=== PATIENT | male | born 1950 | race Caucasian/White ===

== ENCOUNTER 2018-09-04 23:53 | Inpatient (IN) | payer OTHER ==
[~2018-09-04] VITALS: Ht 182.9 cm; Wt 133.3 kg
[2018-09-05] VITALS (78 sets, daily range): BP systolic 78–147; BP diastolic 21–85
[2018-09-05 02:23] LABS: BE(vivo) -1.4 mmol/L (-2 to +3); HCO3 26.3 mmol/L (22.0-26.0); PCO2 55.8 mmHg (35.0-45.0); PO2 62.8 mmHg (80.0-100.0); sO2 89.2 % (92.0-98.0)
[2018-09-05 02:24] LABS: pH 7.292 (7.360-7.450)
[2018-09-05 02:51] LABS: HEMATOCRIT 48.9 % (42.0-52.0); HEMOGLOBIN 15.7 gm/dL (14.0-18.0); MCHC 32.1 g/dL (28.0-37.0); MCV 93.3 fL (80.0-100.0); RBC 5.24 mil/uL (4.50-6.00); RDW 14.6 % (10.5-14.5); WBC 13.4 thou/uL (4.0-11.0)
[2018-09-05 03:07] LABS: ANION GAP 7 mmol/L (7-16); BUN 20 mg/dL (7-18); CALCIUM 8.3 mg/dL (8.5-10.1); CHLORIDE 105 mmol/L (98-107); CO2 32 mmol/L (21-32); CREATININE 0.9 mg/dL (0.7-1.3); GLUCOSE 119 mg/dL (74-106); SODIUM 144 mmol/L (136-145)
[2018-09-05 03:12] LABS: ALBUMIN 3.4 g/dL (3.4-5.0); CHOLESTEROL 117 mg/dL (<200); HDL CHOLESTEROL 49 mg/dL (>40); LDL CHOLESTEROL 55 mg/dL (<100); SGOT 16 U/L (15-37); SGPT 21 U/L (30-65); TC:HDL 2.4 Ratio (Not establshd); TOTAL BILIRUBIN 0.6 mg/dL (<0.1-1.0); TOTAL PROTEIN 6.4 g/dL (6.4-8.2); TRIGLYCERIDE 67 mg/dL (<150); TROPONIN-I 0.08 ng/mL (<0.06); VLDL 13 mg/dL (<40)
[2018-09-05 03:17] LABS: POTASSIUM 5.3 mmol/L (3.5-5.1); SERUM ASSESSMENT Clear
[2018-09-05 03:39] LABS: APTT 28.5 Seconds (24.5-32.8); INR 1.1; PROTIME 11.9 Seconds (9.3-11.4)
--- NOTE | 2018-09-05 08:24 | EKG ---
[address] [address] ELECTROCARDIOGRAM REPORT Name: MALCOM PIERRE Room #: 237-P ADM IN M.R.#: [id number] ������������������ Admission: 09/05/18 ������������������ Attend Phys: Ricardo Barnes MD Discharge: ������������������ Date of : 48 Report #: [id number] ����������������������������������������������������������������� [id number] THIS REPORT FOR: //name// [facility] Test Date: 2018-09-05 Test Time: 07:39:12 Pat Name: MALCOM PIERRE Department: Room: 237 P Gender: M Sfdc Consultant: SUSAN : 1950 Requested By: Yumiko Schultz Order Number: [id number] MD: Tian Denise Measurements Intervals [place] Rate: 99 P: 79 [place]: 155 QRS: 12 QRSD: 97 T: 64 QT: 326 QTc: 419 Interpretive Statements Sinus rhythm Baseline wander in lead(s) V5 No previous ECG available for comparison Electronically Signed On 09-05-2018 8:24:45 CDT by Tian Denise [email or web address] ��������������������������������������������� <ELECTRONICALLY SIGNED> ���������������������������������������� By: Tian Denise MD ��������������������������������������������� 09/05/18 0824 0739 07 Tian Denise MD /PAOLA
[2018-09-05 10:15] LABS: HEMATOCRIT 44.4 % (42.0-52.0); HEMOGLOBIN 14.2 gm/dL (14.0-18.0); MCH 29.4 pg (26.0-34.0); MCHC 32.1 g/dL (28.0-37.0); MCV 91.7 fL (80.0-100.0); PLATELET COUNT 210 thou/uL (150-400); RBC 4.84 mil/uL (4.50-6.00); RDW 14.5 % (10.5-14.5); WBC 15.2 thou/uL (4.0-11.0)
[2018-09-05 10:23] LABS: BE(vivo) 2.7 mmol/L (-2 to +3); HCO3 27.4 mmol/L (22.0-26.0); PCO2 42.5 mmHg (35.0-45.0); PO2 111.9 mmHg (80.0-100.0); pH 7.428 (7.360-7.450); sO2 98.2 % (92.0-98.0)
[2018-09-05 10:23] LABS: CALCIUM 8.4 mg/dL (8.5-10.1); CREATININE 1.1 mg/dL (0.7-1.3)
[2018-09-05 10:25] LABS: POTASSIUM 4.3 mmol/L (3.5-5.1)
--- NOTE | 2018-09-05 10:41 | 2DMMODE ---
[facility] [place] [address] 2 D/M-MODE ECHOCARDIOGRAM Name: MALCOM PIERRE Room #: 237-P [facility] IN [facility]#: [id number] ������������� Admission: 09/05/18 ������������� Attend Phys: Ricardo Barnes MD Discharge: ��� ������������� ��� Date of : 48 Date of Service: 09/05/18 1041 �� Report #: [id number] �������� ��������������������������������������������[id number] THIS REPORT FOR: //name// APPROVED REPORT Study performed: 09/05/2018 09:14:39 EXAM: Comprehensive 2D, Doppler, and color-flow Echocardiogram Patient Location: ICU Room #: [facility] Status: routine BSA: 2.64 HR: 93 bpm BP: 102/35 mmHg Rhythm: Irregular. Rate ranged between 70's-140's Other Information Study Quality: Poor images. Limited windows and measurements Technically limited study due to morbid obesity. Patient in ICU on vent. Indications Respiratory failure, elevated tropinin. Echo Enhancing Agent Indication: Endocardial border delineation Agent(s) / Amount(s) Used: Optison 6 cc Volumes Left Atrial Volume (Systole) Single Plane 4CH: 66.99 mL Single Plane 2CH: 68.46 mL LA ESV Index: 29.00 mL/m2 Aortic Valve AoV Peak Simon.: 1.28 m/s AO Peak Gr.: 6.59 mmHg LVOT Max P.90 mmHg LVOT Max V: 1.11 m/s Mitral Valve E/A Ratio: 0.8 MV Decel. Time: 288.88 ms MV E Max Simon.: 0.50 m/s MV A Simon.: 0.60 m/s MV PHT: 83.[address] [facility] [place] [address] [place] [address] 2 D/M-MODE ECHOCARDIOGRAM Name: MALCOM PIERRE Room #: 237-P ADM IN [facility]#: [id number] ������������� Admission: 09/05/18 ������������� Attend Phys: Ricardo Barnes MD Discharge: ��� ������������� ��� Date of : 48 Date of Service: 09/05/18 1041 �� Report #: [id number] �������� ��������������������������������������������[id number] IVRT: 78.43 ms Left Ventricle Left ventricle is grossly normal size. Poor quality echo. Systolic function is greater than 50%. Right Ventricle Right ventricle is not well visualized. Atria The left atrium size is normal. The right atrium size is normal. Aortic Valve The aortic valve is poorly visualized. No aortic regurgitation is present. There is no aortic valvular stenosis appreciated. Mitral Valve The mitral valve is grossly normal in structure. There is no mitral valve regurgitation noted. Tricuspid Valve Tricuspid valve is poorly visualized. Unable to assess PA pressure. Pulmonic Valve Pulmonic valve is not well visualized. Great Vessels Aortic root is not well visualized. No subcostal windows. Unable to visualize IVC. Pericardium No pericardial effusion is appreciated. <Conclusion> Left ventricle is grossly normal size. Poor quality echo. Systolic function is greater than 50%. Right ventricle is not well visualized. The aortic valve is poorly visualized. The mitral valve is grossly normal in structure. Tricuspid valve is poorly visualized. Pulmonic valve is not well visualized. [facility] [address] [place] [address] 2 D/M-MODE ECHOCARDIOGRAM Name: GABBYMALCOM L Room #: 237-P [facility] IN [facility]#: [id number] ������������� Admission: 09/05/18 ������������� Attend Phys: Ricardo Barnes MD Discharge: ��� ������������� ��� Date of : 48 Date of Service: 09/05/18 104 �� Report #: [id number] �������� ��������������������������������������������[id number] Aortic root is not well visualized. No pericardial effusion is appreciated. ��������������������������������������������� <ELECTRONICALLY SIGNED> ���������������������������������������� By: Noe Albright MD ��������������������������������������������� 09/05/18 104 40 40 Noe Albright MD /INF
[2018-09-05 11:15] LABS: ABSOLUTE NEUTROPHILS 14.1 thou/uL (1.4-8.2)
[2018-09-05 11:16] LABS: ANISOCYTOSIS SLIGHT
[2018-09-05 11:57] LABS: URINE BLOOD 3+ (Negative); URINE COLOR YELLOW; URINE GLUCOSE-RANDOM* NEGATIVE (Negative); URINE KETONES TRACE (Negative); URINE LEUKOCYTES-REFLEX TRACE (Negative); URINE NITRITE-REFLEX NEGATIVE (Negative); URINE PROTEIN (DIPSTICK) TRACE (Negative)
[2018-09-05 11:58] LABS: URINE CLARITY HAZY
[2018-09-05 12:00] LABS: ICTOTEST (BILI CONFIRMATORY) Negative (Negative); URINE BILIRUBIN NEGATIVE (Negative)
[2018-09-05 12:35] LABS: SQUAMOUS 0-3 Few /LPF (0-3)
[2018-09-05 12:36] LABS: CASTS None Seen /LPF (None Seen)
[2018-09-05 12:38] LABS: AMORPHOUS URATES Few /LPF (None Seen); BACTERIA-REFLEX 1-9 Few /HPF (None Seen); URINE WBC-REFLEX 0-5 Rare /HPF (0-5)
[2018-09-05 19:43] LABS: POTASSIUM 3.9 mmol/L (3.5-5.1)
--- NOTE | 2018-09-05 21:23 | HC ---
[facility] [place] [address] CONSULTATION Name: MALCOM PIERRE Room #: 237-P [facility] IN M.R.#: [id number] Admission: 09/05/18 ������������������ Attend Phys: Ricardo Barnes MD Discharge: ������������������ Date of : 48 Report #: [id number] THIS REPORT FOR: //name// CC: FAM unknown Ricardo Barnes DATE OF SERVICE: 09/05/2018 PULMONARY CONSULTATION REFERRAL PHYSICIAN: Ricardo Barnes MD. REASON FOR REFERRAL: Acute respiratory failure. HISTORY OF PRESENT ILLNESS: The patient is a 67-year-old white male who was transferred from [facility] with acute respiratory failure. A pulmonary consultation was requested. History is somewhat limited. The patient is intubated. Family members are not available. Most of the history is obtained from the records. According to records, the patient was found by his niece at home very confused, dyspneic. The patient has not seen a physician in years. When he is brought to the Emergency Room, he was found to be severely acidotic. When he was seen in the Emergency Room Department, his initial arterial blood gas revealed pH of 7.09, pCO2 of 129, pO2 of 108. The patient was placed on BiPAP. He did not improve. Chest x-ray suggests possible right lower lobe infiltrates, questionable soft tissue mass. He was subsequently intubated in the ED and transferred to [facility]. Other pertinent laboratory include hemoglobin of 15.8; creatinine of 0.9. Currently, he is intubated, arousable, requiring sedation. PAST MEDICAL HISTORY: Incomplete. PAST SURGICAL HISTORY: As above. Incomplete. ALLERGIES: PENICILLIN, REACTIONS UNSPECIFIED. HOME MEDICATIONS: None noted. FAMILY HISTORY: Unknown. SOCIAL HISTORY: Unknown. [facility] [address] [place] [address] CONSULTATION Name: MALCOM PIERRE Room #: 237-[facility] IN .R.#: [id number] Admission: 09/05/18 ������������������ Attend Phys: Ricardo Barnes MD Discharge: ������������������ Date of : 48 Report #: [id number] REVIEW OF SYSTEMS: Deferred as the patient is intubated. PHYSICAL EXAMINATION: GENERAL: He is arousable with deep sternal rub. VITAL SIGNS: Temperature is 99.6 degrees Fahrenheit, pulse is 100, respiratory rate is 20, blood pressure is 100/70 mmHg. Blood pressure has been trending downward since admission to a systolic around 78 mmHg and saturation 96%. Of note, a temperature maximum was 105 degrees. HEENT: Normocephalic, atraumatic. He is orally intubated. NECK: Supple, without lymphadenopathy or thyromegaly. CHEST: Breath sounds are distant, coarse breath sounds anteriorly. No obvious wheezes. CARDIOVASCULAR: Distant heart sounds without obvious murmurs or gallop. Pulses 2+/4+ bilaterally. ABDOMEN: Mildly distended. NG was placed. It is now softer. No masses felt. GENITOURINARY: Deferred. RECTAL: Deferred. EXTREMITIES: Trace edema. No cyanosis or clubbing. NEUROLOGIC: Deferred as the patient is sedated. He was restless and mildly agitated off sedation. LABORATORY DATA: Portable chest x-ray now shows patchy right upper lobe and lower lobe infiltrates. There is a moderate size left lower lobe infiltrates with probable small pleural effusion. Left hemidiaphragm is elevated with increased gas in the stomach. Central line is in place. ET tube is approximately 2.5 to 3 cm above the yisel. Mediastinum is enlarged. Leg Doppler ultrasound shows no evidence of DVT. Echocardiogram showed poor quality echocardiogram. The right ventricle was not adequately visualized, systolic functions felt to be normal at 50%, otherwise no other significant findings. TSH is 2.2. BNP is approximately 1000. EKG shows sinus rhythm. Lactic acid is 1.9. UA notable for 1-9 bacteria. Electrolytes: Sodium 145, potassium 4.3, chloride 108, CO2 of 33, BUN is 21, creatinine is 1.1. Liver enzymes are grossly unremarkable. WBC 15,200 without significant bandemia. Platelets are normal. Albumin 3.2. Arterial blood gas revealed pH 7.42, pCO2 of 42, pO2 of 111 on FiO2 100%, PEEP at 9. IMPRESSION: 1. Acute hypercapnic hypoxic respiratory failure in this 67-year-old morbidly obese white male. Suspect underlying obesity hypoventilation syndrome with probable pneumonia. It is unclear if he has underlying chronic lung disease. With the patient's bicarbonate being elevated, this suggests hypercapnia is likely chronic confirming the presence of obesity hypoventilation syndrome. 2. Infiltrates. He now has bilateral patchy infiltrates. I do not have the copy of the initial chest x-ray. Intubation was said to be difficult. Aspiration should be considered. Community-acquired pneumonia is likely. 3. Early onset of hypotension. Severe sepsis, septic shock is suspected. [facility] [address] [place] [address] CONSULTATION Name: MALCOM PIERRE Room #: 237-P ADM IN M.R.#: [id number] Admission: 09/05/18 ������������������ Attend Phys: Ricardo Barnes MD Discharge: ������������������ Date of : 48 Report #: [id number] Initiate sepsis protocol. 4. Profound hypoxia, noted A-a gradient is markedly increased. Leg Doppler ultrasound was negative for deep venous thrombosis. His hypoxia is likely related to pneumonia, possible chronic lung disease. However, cannot rule out the possibility of pulmonary embolus. For now, we would recommend heparin drip until the patient is stabilized, then we can confidently rule out pulmonary embolus. 5. Wide mediastinum, questionable lung mass. Would recommend CT chest once clinically stable. 6. Morbid obesity. As mentioned above, suspect obesity hypoventilation syndrome/obstructive sleep apnea. 7. Abdominal distention. Recent chest x-ray shows increased gaseous content in the stomach, suspect ileus. RECOMMENDATION: Continue mechanical ventilation. We will try to optimize PEEP to wean FiO2, hopefully down to 60% if possible to avoid oxygen toxicity. We will try to optimize PEEP as blood pressure tolerates. Recommend initiating sepsis protocol given pneumonia, hypotension, multisystem organ failure. For now, we will continue heparin drip; once stable, hopefully we can proceed with CT chest. If hypoxia and A-a gradient remains markedly abnormal, would in fact do CT chest angiogram. Note that echocardiogram was a difficult study. Right ventricle was not able to be adequately assessed. History suggested intubation was traumatic and weaning may be difficult. He is already on steroids for sepsis protocol. He may need to have upper airway carefully evaluated prior to proceeding with extubation when he is improved. DVT and GI prophylaxis is recommended. Critical care 1 hour. Thank you very much for this consultation. ��������������������������������������������� <ELECTRONICALLY SIGNED> ���������������������������������������� By: Josh Addison MD ��������������������������������������������� 09/05/18 2123 1845 24 Josh Addison MD /kassie
[2018-09-06] VITALS (61 sets, daily range): BP systolic 85–137; BP diastolic 51–93
[2018-09-06 00:10] LABS: GLYCOHEMOGLOBIN (HGB A1C) 5.8 % (4.8-5.6)
[2018-09-06 05:17] LABS: ABSOLUTE NEUTROPHILS 10.7 thou/uL (1.4-8.2); BASOPHILS 0.3 % (0.0-2.0); EOSINOPHILS 0.4 % (0.0-3.0); HEMATOCRIT 40.3 % (42.0-52.0); HEMOGLOBIN 13.4 gm/dL (14.0-18.0); LYMPHOCYTES 6.9 % (24.0-44.0); MCH 30.2 pg (26.0-34.0); MCHC 33.2 g/dL (28.0-37.0); MONOCYTES 6.2 % (1.0-8.0); PLATELET COUNT 175 thou/uL (150-400); POLYS 86.2 % (36.0-66.0); RBC 4.43 mil/uL (4.50-6.00); RDW 14.5 % (10.5-14.5); WBC 12.4 thou/uL (4.0-11.0)
[2018-09-06 05:20] LABS: BE(vivo) 3.4 mmol/L (-2 to +3); HCO3 27.6 mmol/L (22.0-26.0); PCO2 40.5 mmHg (35.0-45.0); PO2 133.9 mmHg (80.0-100.0); pH 7.452 (7.360-7.450); sO2 98.8 % (92.0-98.0)
[2018-09-06 05:27] LABS: CALCIUM 7.9 mg/dL (8.5-10.1); CREATININE 0.9 mg/dL (0.7-1.3); POTASSIUM 3.5 mmol/L (3.5-5.1)
--- NOTE | 2018-09-06 09:29 | HC ---
[facility] [place] [address] CONSULTATION Name: MALCOM PIERRE Room #: 237-P [facility] IN .R.#: [id number] Admission: 09/05/18 ������������������ Attend Phys: Ricardo Barnes MD Discharge: ������������������ Date of : 48 Report #: [id number] THIS REPORT FOR: //name// CC: FAM unknown Ricardo Barnes DATE OF SERVICE: 09/05/2018 INFECTIOUS DISEASE CONSULTATION REASON FOR CONSULTATION: I was asked to evaluate concerning respiratory failure, pneumonia and septic shock. HISTORY OF PRESENT ILLNESS: The patient is a 67-year-old transferred from [facility] where he presented with acute respiratory failure and shock. He has had progressive shortness of breath over the last 3 months. He was found by his niece at home, confused, dyspneic. Transported to the Emergency Room in respiratory failure. Placed on BiPAP, required intubation and mechanical ventilation. No further details are available regarding his history. Following transport, DICTATION ENDS HERE. ��������������������������������������������� <ELECTRONICALLY SIGNED> ���������������������������������������� By: Jacob Kerr MD ��������������������������������������������� 09/06/18 0929 1104 2346 Jacob Kerr MD /nt
[2018-09-06 14:06] LABS: HIV ANTIBODY Non Reactive (Non Reactive)
[2018-09-07] VITALS (88 sets, daily range): BP systolic 101–150; BP diastolic 56–104
[2018-09-07 04:28] LABS: CALCIUM 8.5 mg/dL (8.5-10.1); CREATININE 0.9 mg/dL (0.7-1.3); POTASSIUM 3.6 mmol/L (3.5-5.1)
[2018-09-07 05:17] LABS: BE(vivo) 3.5 mmol/L (-2 to +3); HCO3 28.4 mmol/L (22.0-26.0); PCO2 44.2 mmHg (35.0-45.0); PO2 97.5 mmHg (80.0-100.0); pH 7.426 (7.360-7.450); sO2 97.5 % (92.0-98.0)
[2018-09-07 06:25] LABS: HEMATOCRIT 40.8 % (42.0-52.0); HEMOGLOBIN 13.2 gm/dL (14.0-18.0); MCH 29.8 pg (26.0-34.0); MCHC 32.4 g/dL (28.0-37.0); MCV 91.8 fL (80.0-100.0); RBC 4.44 mil/uL (4.50-6.00); WBC 11.1 thou/uL (4.0-11.0)
[2018-09-07 12:12] LABS: BE(vivo) 0.9 mmol/L (-2 to +3); HCO3 26.7 mmol/L (22.0-26.0); PCO2 47.3 mmHg (35.0-45.0); PO2 70.5 mmHg (80.0-100.0); sO2 93.6 % (92.0-98.0)
[2018-09-07 13:07] LABS: CALCIUM 8.5 mg/dL (8.5-10.1); CREATININE 1.1 mg/dL (0.7-1.3); POTASSIUM 3.8 mmol/L (3.5-5.1)
[2018-09-08] VITALS (28 sets, daily range): BP systolic 98–124; BP diastolic 58–83
[2018-09-08 05:16] LABS: BE(vivo) -0.1 mmol/L (-2 to +3); HCO3 26.5 mmol/L (22.0-26.0); PO2 93.2 mmHg (80.0-100.0); pH 7.334 (7.360-7.450); sO2 96.6 % (92.0-98.0)
[2018-09-08 05:32] LABS: HEMOGLOBIN 13.2 gm/dL (14.0-18.0); MCH 30.1 pg (26.0-34.0); RBC 4.39 mil/uL (4.50-6.00); WBC 8.4 thou/uL (4.0-11.0)
[2018-09-08 05:44] LABS: CALCIUM 8.6 mg/dL (8.5-10.1); CREATININE 0.9 mg/dL (0.7-1.3); POTASSIUM 3.6 mmol/L (3.5-5.1)
[2018-09-08 18:08] LABS: HISTOPLASMA MYCELIAL-CF Negative (Neg:<1:2); HISTOPLASMA MYCELIAL-ID Negative (Negative)
[2018-09-08 21:07] LABS: ADENOVIRUS Negative (Negative); INFLUENZA A Negative (Negative); INFLUENZA B Negative (Negative); METAPNEUMOVIRUS Negative (Negative); PARAINFLUENZA 1 Negative (Negative); PARAINFLUENZA 2 Negative (Negative); PARAINFLUENZA 3 Negative (Negative); RHINOVIRUS Negative (Negative); RSV A Negative (Negative); RSV B Negative (Negative)
[2018-09-09] VITALS (24 sets, daily range): BP systolic 100–127; BP diastolic 62–82
[2018-09-09 05:11] LABS: HEMATOCRIT 35.5 % (42.0-52.0); HEMOGLOBIN 12.2 gm/dL (14.0-18.0); MCH 31.6 pg (26.0-34.0); MCHC 34.5 g/dL (28.0-37.0); MCV 91.6 fL (80.0-100.0); RBC 3.88 mil/uL (4.50-6.00); RDW 14.8 % (10.5-14.5); WBC 7.2 thou/uL (4.0-11.0)
[2018-09-09 07:12] LABS: CALCIUM 8.7 mg/dL (8.5-10.1); POTASSIUM 3.5 mmol/L (3.5-5.1)
[2018-09-09 12:10] LABS: HCO3 24.9 mmol/L (22.0-26.0); PCO2 51.5 mmHg (35.0-45.0); PO2 64.6 mmHg (80.0-100.0); pH 7.303 (7.360-7.450); sO2 90.4 % (92.0-98.0)
[2018-09-10] VITALS (24 sets, daily range): BP systolic 92–125; BP diastolic 52–78
[2018-09-10 05:01] LABS: BE(vivo) 0.7 mmol/L (-2 to +3); HCO3 27.5 mmol/L (22.0-26.0); PCO2 53.1 mmHg (35.0-45.0); PO2 97.3 mmHg (80.0-100.0); pH 7.332 (7.360-7.450); sO2 96.9 % (92.0-98.0)
[2018-09-10 12:55] LABS: BE(vivo) 3.5 mmol/L (-2 to +3); HCO3 31.2 mmol/L (22.0-26.0); PCO2 61.3 mmHg (35.0-45.0); PO2 57.7 mmHg (80.0-100.0); sO2 87.2 % (92.0-98.0)
[2018-09-10 12:57] LABS: pH 7.325 (7.360-7.450)
[2018-09-11] VITALS (25 sets, daily range): BP systolic 93–114; BP diastolic 57–73
[2018-09-11 05:32] LABS: HEMATOCRIT 36.2 % (42.0-52.0); HEMOGLOBIN 12.4 gm/dL (14.0-18.0); MCH 31.2 pg (26.0-34.0); MCHC 34.2 g/dL (28.0-37.0); MCV 91.2 fL (80.0-100.0); PLATELET COUNT 211 thou/uL (150-400); RBC 3.97 mil/uL (4.50-6.00); RDW 14.3 % (10.5-14.5)
[2018-09-11 05:42] LABS: BE(vivo) 4.2 mmol/L (-2 to +3); HCO3 30.2 mmol/L (22.0-26.0); PCO2 51.2 mmHg (35.0-45.0); PO2 90.3 mmHg (80.0-100.0); pH 7.389 (7.360-7.450); sO2 96.7 % (92.0-98.0)
[2018-09-11 07:01] LABS: ABSOLUTE NEUTROPHILS 4.5 thou/uL (1.4-8.2); MYELOCYTES 1 %
[2018-09-11 07:53] LABS: ALBUMIN 2.2 g/dL (3.4-5.0); CREATININE 0.7 mg/dL (0.7-1.3); POTASSIUM 3.6 mmol/L (3.5-5.1); TOTAL BILIRUBIN 0.3 mg/dL (<0.1-1.0); TOTAL PROTEIN 5.3 g/dL (6.4-8.2)
[2018-09-12] VITALS (24 sets, daily range): BP systolic 104–171; BP diastolic 56–88
[2018-09-12 05:45] LABS: HEMOGLOBIN 12.9 gm/dL (14.0-18.0); MCH 29.8 pg (26.0-34.0); MCV 90.1 fL (80.0-100.0); RBC 4.33 mil/uL (4.50-6.00); RDW 14.2 % (10.5-14.5); WBC 6.5 thou/uL (4.0-11.0)
[2018-09-12 06:06] LABS: ALBUMIN 2.3 g/dL (3.4-5.0); CALCIUM 8.8 mg/dL (8.5-10.1); CREATININE 0.7 mg/dL (0.7-1.3); MAGNESIUM 2.3 mg/dL (1.8-2.4); PHOSPHORUS 3.7 mg/dL (2.5-4.9); POTASSIUM 4.1 mmol/L (3.5-5.1); TOTAL BILIRUBIN 0.5 mg/dL (<0.1-1.0); TOTAL PROTEIN 6.1 g/dL (6.4-8.2)
[2018-09-13] VITALS (24 sets, daily range): BP systolic 100–161; BP diastolic 42–83
[2018-09-13 04:40] LABS: CALCIUM 9.1 mg/dL (8.5-10.1); CREATININE 0.8 mg/dL (0.7-1.3); PHOSPHORUS 3.5 mg/dL (2.5-4.9); POTASSIUM 3.8 mmol/L (3.5-5.1)
[2018-09-14] VITALS (21 sets, daily range): BP systolic 96–137; BP diastolic 54–78
[2018-09-14 06:02] LABS: CALCIUM 8.9 mg/dL (8.5-10.1); CREATININE 0.7 mg/dL (0.7-1.3); MAGNESIUM 2.1 mg/dL (1.8-2.4); POTASSIUM 3.9 mmol/L (3.5-5.1)
[2018-09-14 06:17] LABS: PHOSPHORUS 3.8 mg/dL (2.5-4.9)
[2018-09-14 09:59] LABS: BE(vivo) 6.9 mmol/L (-2 to +3); HCO3 36.2 mmol/L (22.0-26.0); PO2 78.9 mmHg (80.0-100.0); sO2 93.8 % (92.0-98.0)
[2018-09-14 10:00] LABS: pH 7.296 (7.360-7.450)
[2018-09-14 15:13] LABS: HCO3 35.6 mmol/L (22.0-26.0); PCO2 57.1 mmHg (35.0-45.0); PO2 80.5 mmHg (80.0-100.0); pH 7.413 (7.360-7.450); sO2 95.8 % (92.0-98.0)
[2018-09-15] VITALS (24 sets, daily range): BP systolic 93–124; BP diastolic 53–76
[2018-09-15 05:04] LABS: CALCIUM 9.4 mg/dL (8.5-10.1); CREATININE 0.6 mg/dL (0.7-1.3); POTASSIUM 4.4 mmol/L (3.5-5.1)
[2018-09-15 13:50] LABS: BE(vivo) 9.1 mmol/L (-2 to +3); HCO3 37.3 mmol/L (22.0-26.0); PO2 73.1 mmHg (80.0-100.0); sO2 93.6 % (92.0-98.0)
[2018-09-15 13:51] LABS: PCO2 67.6 mmHg (35.0-45.0)
[2018-09-16] VITALS (24 sets, daily range): BP systolic 99–128; BP diastolic 47–71
[2018-09-16 05:18] LABS: HEMATOCRIT 39.1 % (42.0-52.0); HEMOGLOBIN 12.7 gm/dL (14.0-18.0); MCH 29.6 pg (26.0-34.0); MCHC 32.6 g/dL (28.0-37.0); MCV 90.9 fL (80.0-100.0); RBC 4.3 mil/uL (4.50-6.00); WBC 10.9 thou/uL (4.0-11.0)
[2018-09-16 05:31] LABS: CREATININE 0.7 mg/dL (0.7-1.3); POTASSIUM 4.3 mmol/L (3.5-5.1)
[2018-09-17] VITALS (21 sets, daily range): BP systolic 97–130; BP diastolic 52–76
[2018-09-17 05:14] LABS: HEMATOCRIT 39.2 % (42.0-52.0); HEMOGLOBIN 12.7 gm/dL (14.0-18.0); MCH 29.3 pg (26.0-34.0); MCHC 32.3 g/dL (28.0-37.0); MCV 90.6 fL (80.0-100.0); RBC 4.33 mil/uL (4.50-6.00); RDW 14.2 % (10.5-14.5); WBC 8.7 thou/uL (4.0-11.0)
[2018-09-17 05:22] LABS: CALCIUM 8.9 mg/dL (8.5-10.1); CREATININE 0.6 mg/dL (0.7-1.3); POTASSIUM 4.5 mmol/L (3.5-5.1)
[2018-09-18] VITALS (24 sets, daily range): BP systolic 90–126; BP diastolic 52–76
[2018-09-18 06:00] LABS: CALCIUM 8.9 mg/dL (8.5-10.1); CREATININE 0.6 mg/dL (0.7-1.3); POTASSIUM 4.4 mmol/L (3.5-5.1)
[2018-09-18 11:44] LABS: BE(vivo) 5.3 mmol/L (-2 to +3); HCO3 32.7 mmol/L (22.0-26.0); PO2 67.5 mmHg (80.0-100.0); pH 7.354 (7.360-7.450); sO2 92.2 % (92.0-98.0)
[2018-09-19] VITALS (48 sets, daily range): BP systolic 84–138; BP diastolic 40–92
[2018-09-19 06:14] LABS: CALCIUM 8.7 mg/dL (8.5-10.1); CREATININE 0.6 mg/dL (0.7-1.3); POTASSIUM 4.1 mmol/L (3.5-5.1)
[2018-09-20] VITALS (30 sets, daily range): BP systolic 86–135; BP diastolic 46–79
[2018-09-20 05:18] LABS: HEMATOCRIT 38.4 % (42.0-52.0); HEMOGLOBIN 12.7 gm/dL (14.0-18.0); MCH 29.8 pg (26.0-34.0); MCV 90.4 fL (80.0-100.0); RBC 4.25 mil/uL (4.50-6.00); RDW 14.1 % (10.5-14.5); WBC 9.2 thou/uL (4.0-11.0)
[2018-09-20 05:28] LABS: CALCIUM 9.1 mg/dL (8.5-10.1); CREATININE 0.7 mg/dL (0.7-1.3); POTASSIUM 4.1 mmol/L (3.5-5.1)
[2018-09-20 08:18] LABS: INR 1.1; PROTIME 11.2 Seconds (9.3-11.4)
--- NOTE | 2018-09-20 11:00 | P ---
[facility] [place] [address] PROCEDURE REPORT Name: MALCOM PIERRE Room #: 243-P [facility] IN .R.#: [id number] Admission: 09/05/18 ������������������ Attend Phys: Ricardo Barnes MD Discharge: ������������������ Date of : 48 Report #: [id number] THIS REPORT FOR: //name// CC: FAM unknown Ricardo Barnes MD PROCEDURE PERFORMED: EGD with attempted PEG tube placement. PATIENT OF: Ricardo Barnes MD INDICATION FOR PROCEDURE: This patient has H. influenzae pneumonia. He is on a ventilator with a prolonged weaning anticipated and therefore needs a tracheostomy and a PEG tube. We were asked to place a PEG tube for him. Informed consent for this procedure was obtained prior to the administration of any medication. The risks of the procedure, which include bleeding, perforation, infection, complications of sedation and the possibility I could miss something have been explained to his relatives and she has indicated her consent for us to place the PEG tube. The patient is on a propofol drip that is being titrated by the ICU nurses for the patient's comfort for this procedure. The upper videoscope was introduced through the upper esophageal sphincter and advanced under direct visualization to the third portion of the duodenum. Findings are noted on withdrawal of the scope. The duodenal mucosa and the second portion of the duodenum appears normal. Duodenal bulb contains some erythema. Pylorus, normal mucosa. Antrum, patchy erythema seen in the antrum, it is mild. Body, normal mucosa. Cardia and fundus, normal mucosa. Retroflex view did not reveal any abnormalities. The scope was withdrawn to the esophagus. The Z-line is appropriately located at the top of the gastric folds and appears normal. The esophageal mucosa appears normal throughout its entirety. The scope was advanced down into the stomach again and appropriate place in the antrum on the anterior wall was localized endoscopically with transillumination seen. The anterior abdominal wall in the epigastrium was sterilely prepped and draped and 5 mL of 1% lidocaine was used as a local anesthetic. A 1 cm incision was made with a scalpel. Good hemostasis was obtained immediately. Then a trocar was introduced through the anterior abdominal wall and down into the abdomen, but I was never able to gain access to the stomach. I could not even really see the gastric wall at all with the needle. The patient is a large man, weighs about 148 kg and has a lot of adipose tissue I expect up in the epigastrium, which may be the limiting factor for my needle being able to reach his stomach. Therefore, the trocar was removed. Sterile dressing was applied with triple antibiotic ointment and the scope was withdrawn. The patient was recovered in the room in ICU. He tolerated the procedure well. IMPRESSION: [facility] [address] [place] [address] PROCEDURE REPORT Name: MALCOM PIERRE Room #: 243-P [facility] IN .R.#: [id number] Admission: 09/05/18 ������������������ Attend Phys: Ricardo Barnes MD Discharge: ������������������ Date of : 48 Report #: [id number] 1. Mild gastric erythema. 2. Mild duodenitis of the bulb. 3. Unsuccessful placement of PEG tube probably related to the patient's adiposity in the epigastric area. RECOMMENDATIONS: To consult Interventional Radiology and I left a message with Dr. Nguyen on his phone about this PEG tube placement on this patient. Thank you very much once again for allowing me to participate in his care. ��������������������������������������������� <ELECTRONICALLY SIGNED> ���������������������������������������� By: Maxine Minaya DO ��������������������������������������������� 09/20/18 1100 1339 0127 Maxine Minaya DO /nt
[2018-09-21] VITALS (64 sets, daily range): BP systolic 83–124; BP diastolic 46–78
[2018-09-21 05:15] LABS: HEMATOCRIT 37.3 % (42.0-52.0); HEMOGLOBIN 12.2 gm/dL (14.0-18.0); MCH 29.4 pg (26.0-34.0); MCHC 32.6 g/dL (28.0-37.0); MCV 90.2 fL (80.0-100.0); RBC 4.14 mil/uL (4.50-6.00)
[2018-09-21 05:21] LABS: CALCIUM 8.7 mg/dL (8.5-10.1); CREATININE 0.6 mg/dL (0.7-1.3); POTASSIUM 4.2 mmol/L (3.5-5.1)
--- NOTE | 2018-09-21 16:46 | EKG ---
[address] [place] [address] ELECTROCARDIOGRAM REPORT Name: MALCOM PIERRE Room #: 243-P ADM IN .R.#: [id number] ������������������ Admission: 09/05/18 ������������������ Attend Phys: Ricardo Barnes MD Discharge: ������������������ Date of : 48 Report #: [id number] ����������������������������������������������������������������� [id number] THIS REPORT FOR: //name// [facility] Test Date: 2018-09-21 Test Time: 12:59:15 Pat Name: MALCOM PIERRE Department: Room: 243 P Gender: M Customer Support Engineer: Mindy AVILES : 1950 Requested By: Ricardo Barnes Order Number: [id number] MD: Jass Hinojosa Measurements Intervals [place] Rate: 133 P: 35 [place]: 153 QRS: -3 QRSD: 102 T: 197 QT: 333 QTc: 496 Interpretive Statements Sinus tachycardia Abnormal R-wave progression, early transition Abnormal T, consider ischemia, diffuse leads Baseline wander in lead(s) I,II,aVR,V1,V3,V5 Compared to ECG 09/05/2018 07:39:12 T-wave abnormality now present Electronically Signed On 09-21-2018 16:46:24 CDT by Jass Hinojosa [email or web address] ��������������������������������������������� <ELECTRONICALLY SIGNED> ���������������������������������������� By: Jass Hinojosa MD, FAC ��������������������������������������������� 09/21/18 1646 1259 1259 Jass Hinojosa MD, FAC /EPI
[2018-09-22] VITALS (40 sets, daily range): BP systolic 104–141; BP diastolic 70–114
[2018-09-22 05:56] LABS: HEMATOCRIT 41.2 % (42.0-52.0); HEMOGLOBIN 13.1 gm/dL (14.0-18.0); MCH 28.9 pg (26.0-34.0); MCHC 31.9 g/dL (28.0-37.0); MCV 90.6 fL (80.0-100.0); RBC 4.55 mil/uL (4.50-6.00); RDW 14.2 % (10.5-14.5); WBC 13.6 thou/uL (4.0-11.0)
[2018-09-22 06:02] LABS: CALCIUM 9.3 mg/dL (8.5-10.1); CREATININE 0.7 mg/dL (0.7-1.3); POTASSIUM 4.1 mmol/L (3.5-5.1)
[2018-09-23] VITALS (59 sets, daily range): BP systolic 93–128; BP diastolic 57–91
[2018-09-23 05:46] LABS: HEMOGLOBIN 13.6 gm/dL (14.0-18.0); MCH 29.1 pg (26.0-34.0); MCHC 32.3 g/dL (28.0-37.0); MCV 89.8 fL (80.0-100.0); RBC 4.67 mil/uL (4.50-6.00); RDW 13.9 % (10.5-14.5); WBC 15.3 thou/uL (4.0-11.0)
[2018-09-23 05:58] LABS: CREATININE 0.6 mg/dL (0.7-1.3)
[2018-09-23 06:08] LABS: POTASSIUM 3.6 mmol/L (3.5-5.1); TOTAL BILIRUBIN 2.8 mg/dL (<0.1-1.0); TOTAL PROTEIN 6.1 g/dL (6.4-8.2)
--- NOTE | 2018-09-23 13:33 | EKG ---
[address] [place] [address] ELECTROCARDIOGRAM REPORT Name: MALCOM PIERRE Room #: 237-P [facility] IN M.R.#: [id number] ������������������ Admission: 09/05/18 ������������������ Attend Phys: Ricardo Barnes MD Discharge: ������������������ Date of : 48 Report #: [id number] ����������������������������������������������������������������� [id number] THIS REPORT FOR: //name// [facility] Test Date: 2018-09-22 Test Time: 16:49:33 Pat Name: MALCOM PIERRE Department: Room: 237 P Gender: M Bilingual Speech Language Pathologist: SHERRI : 1950 Requested By: Walter Salcedo Order Number: [id number] MD: Jass Hinojosa Measurements Intervals [place] Rate: 135 P: [place]: QRS: -6 QRSD: 101 T: 77 QT: 324 QTc: 486 Interpretive Statements Sinus rhythm with paroxysmal supraventricular tachycardia Minimal ST depression, anterolateral leads Borderline prolonged QT interval Compared to ECG 09/21/2018 12:59:15 nonspecific change in the ST and T-wave segments paroxysmal supraventricular tachycardia is now present Electronically Signed On 09-23-2018 13:33:39 CDT by Jass Hinojosa [email or web address] ��������������������������������������������� <ELECTRONICALLY SIGNED> ���������������������������������������� By: Jass Hinojosa MD, [facility] ��������������������������������������������� 09/23/18 1333 1649 1649 Jass Hinojosa MD, [facility] /EPI
--- NOTE | 2018-09-23 13:37 | EKG ---
[place] [address] [facility] [place] [address] ELECTROCARDIOGRAM REPORT Name: MALCOM PIERRE Room #: 237-P ADM IN M.R.#: [id number] ������������������ Admission: 09/05/18 ������������������ Attend Phys: Ricardo Barnes MD Discharge: ������������������ Date of : 48 Report #: [id number] ����������������������������������������������������������������� [id number] THIS REPORT FOR: //name// [facility] Test Date: 2018-09-23 Test Time: 07:20:30 Pat Name: MALCOM PIERRE Department: Room: 237 P Gender: M Marine Cargo Specialist: SHERRI : 1950 Requested By: Walter Salcedo Order Number: [id number] MD: Jass Hinojosa Measurements Intervals [place] Rate: 75 P: 33 [place]: 182 QRS: 24 QRSD: 108 T: 87 QT: 549 QTc: 614 Interpretive Statements Sinus rhythm Abnormal R-wave progression, early transition Nonspecific T wave abnormality Prolonged QT interval No previous ECGs available for comparison Electronically Signed On 09-23-2018 13:37:29 CDT by Jass Hinojosa [email or web address] ��������������������������������������������� <ELECTRONICALLY SIGNED> ���������������������������������������� By: Jass Hinojosa MD, [facility] ��������������������������������������������� 09/23/18 1337 9 9 Jass Hinojosa MD, [facility] /EPI
[2018-09-24] VITALS (68 sets, daily range): BP systolic 69–156; BP diastolic 32–118
[2018-09-24 04:34] LABS: CALCIUM 8.9 mg/dL (8.5-10.1); CREATININE 0.6 mg/dL (0.7-1.3); POTASSIUM 3.7 mmol/L (3.5-5.1)
[2018-09-24 04:46] LABS: MCH 29.2 pg (26.0-34.0); MCHC 32.3 g/dL (28.0-37.0); MCV 90.5 fL (80.0-100.0); RBC 3.98 mil/uL (4.50-6.00); RDW 14.5 % (10.5-14.5)
[2018-09-24 04:54] LABS: HEMOGLOBIN 11.6 gm/dL (14.0-18.0)
[2018-09-24 05:15] LABS: BE(vivo) 1.5 mmol/L (-2 to +3); HCO3 27.1 mmol/L (22.0-26.0); PCO2 46.8 mmHg (35.0-45.0); pH 7.381 (7.360-7.450); sO2 97.4 % (92.0-98.0)
[2018-09-24 19:46] LABS: HEMATOCRIT 31.9 % (42.0-52.0); HEMOGLOBIN 10.7 gm/dL (14.0-18.0); MCH 30.1 pg (26.0-34.0); MCHC 33.6 g/dL (28.0-37.0); MCV 89.5 fL (80.0-100.0); RBC 3.56 mil/uL (4.50-6.00); WBC 15.6 thou/uL (4.0-11.0)
[2018-09-25] VITALS (52 sets, daily range): BP systolic 75–117; BP diastolic 45–73
[2018-09-25 02:03] LABS: HEMATOCRIT 26.9 % (42.0-52.0); HEMOGLOBIN 8.9 gm/dL (14.0-18.0); MCH 29.6 pg (26.0-34.0); MCHC 32.9 g/dL (28.0-37.0); RBC 2.99 mil/uL (4.50-6.00); WBC 14.5 thou/uL (4.0-11.0)
[2018-09-25 02:15] LABS: ALBUMIN 2.2 g/dL (3.4-5.0); CALCIUM 8.1 mg/dL (8.5-10.1); CREATININE 0.7 mg/dL (0.7-1.3); POTASSIUM 3.9 mmol/L (3.5-5.1); TOTAL BILIRUBIN 1.9 mg/dL (<0.1-1.0); TOTAL PROTEIN 4.9 g/dL (6.4-8.2)
[2018-09-25 05:17] LABS: HEMATOCRIT 27.5 % (42.0-52.0); HEMOGLOBIN 8.9 gm/dL (14.0-18.0)
[2018-09-25 11:02] LABS: HEMATOCRIT 24.6 % (42.0-52.0); HEMOGLOBIN 8.1 gm/dL (14.0-18.0)
[2018-09-25 18:12] LABS: HEMATOCRIT 22.8 % (42.0-52.0); HEMOGLOBIN 7.7 gm/dL (14.0-18.0)
[2018-09-25 18:43] LABS: HEMATOCRIT 23.4 % (42.0-52.0); HEMOGLOBIN 7.7 gm/dL (14.0-18.0); MCH 29.6 pg (26.0-34.0); MCHC 32.9 g/dL (28.0-37.0); MCV 89.9 fL (80.0-100.0); PLATELET COUNT 289 thou/uL (150-400); RDW 14.4 % (10.5-14.5); WBC 14.4 thou/uL (4.0-11.0)
[2018-09-25 18:48] LABS: CALCIUM 8.6 mg/dL (8.5-10.1); CREATININE 0.7 mg/dL (0.7-1.3); POTASSIUM 4.5 mmol/L (3.5-5.1)
[2018-09-25 18:54] LABS: ALBUMIN 2.3 g/dL (3.4-5.0); TOTAL BILIRUBIN 1.2 mg/dL (<0.1-1.0)
[2018-09-25 19:04] LABS: INR 1.1; PROTIME 11.2 Seconds (9.3-11.4)
[2018-09-25 19:21] LABS: BE(vivo) 5.7 mmol/L (-2 to +3); HCO3 30.8 mmol/L (22.0-26.0); PCO2 48.2 mmHg (35.0-45.0); pH 7.424 (7.360-7.450); sO2 96.8 % (92.0-98.0)
[2018-09-25 19:50] LABS: ABSOLUTE NEUTROPHILS 12.4 thou/uL (1.4-8.2); ANISOCYTOSIS 1+
[2018-09-26] VITALS (85 sets, daily range): BP systolic 64–137; BP diastolic 32–94
[2018-09-26 00:47] LABS: BE(vivo) 1.4 mmol/L (-2 to +3); HCO3 26.3 mmol/L (22.0-26.0); PCO2 42.4 mmHg (35.0-45.0); PO2 79.4 mmHg (80.0-100.0); sO2 95.8 % (92.0-98.0)
[2018-09-26 01:09] LABS: HEMATOCRIT 33.6 % (42.0-52.0); MCH 29.4 pg (26.0-34.0); MCHC 32.5 g/dL (28.0-37.0); MCV 90.3 fL (80.0-100.0); RBC 3.72 mil/uL (4.50-6.00); RDW 14.9 % (10.5-14.5); WBC 16.9 thou/uL (4.0-11.0)
[2018-09-26 01:10] LABS: HEMOGLOBIN 10.9 gm/dL (14.0-18.0)
[2018-09-26 01:18] LABS: CALCIUM 7.9 mg/dL (8.5-10.1); CREATININE 0.7 mg/dL (0.7-1.3); POTASSIUM 3.9 mmol/L (3.5-5.1)
[2018-09-26 02:10] LABS: BE(vivo) 0.1 mmol/L (-2 to +3); HCO3 27.3 mmol/L (22.0-26.0); PCO2 55.6 mmHg (35.0-45.0); PO2 84.7 mmHg (80.0-100.0); pH 7.309 (7.360-7.450); sO2 95.3 % (92.0-98.0)
[2018-09-26 05:06] LABS: BE(vivo) -1.4 mmol/L (-2 to +3); HCO3 24.3 mmol/L (22.0-26.0); PCO2 45.1 mmHg (35.0-45.0); PO2 176.2 mmHg (80.0-100.0); sO2 99.1 % (92.0-98.0)
[2018-09-26 05:26] LABS: HEMATOCRIT 32.6 % (42.0-52.0); HEMOGLOBIN 10.6 gm/dL (14.0-18.0); MCH 29.5 pg (26.0-34.0); MCHC 32.4 g/dL (28.0-37.0); MCV 91.1 fL (80.0-100.0); RBC 3.58 mil/uL (4.50-6.00); RDW 14.9 % (10.5-14.5)
[2018-09-26 05:37] LABS: ALBUMIN 2.2 g/dL (3.4-5.0); CALCIUM 7.4 mg/dL (8.5-10.1); CREATININE 1.2 mg/dL (0.7-1.3); MAGNESIUM 1.4 mg/dL (1.8-2.4); POTASSIUM 4.2 mmol/L (3.5-5.1)
[2018-09-26 06:59] LABS: TOTAL BILIRUBIN 5.3 mg/dL (<0.1-1.0); TOTAL PROTEIN 4.7 g/dL (6.4-8.2)
--- NOTE | 2018-09-26 11:31 | EKG ---
[address] [address] ELECTROCARDIOGRAM REPORT Name: MALCOM PIERRE Room #: 237-P ADM IN .R.#: [id number] ������������������ Admission: 09/05/18 ������������������ Attend Phys: Ricardo Barnes MD Discharge: ������������������ Date of : [birth year] Report #: [id number] ����������������������������������������������������������������� [id number] THIS REPORT FOR: //name// [facility] Test Date: 2018-09-26 Test Time: 00:50:19 Pat Name: MALCOM PIERRE Department: Room: 237 P Gender: M Email Production Specialist: : 1950 Requested By: Vaughn Angel Order Number: [id number] MD: Tian Denise Measurements Intervals [place] Rate: 198 P: [place]: QRS: 18 QRSD: 96 T: 181 QT: 239 QTc: 434 Interpretive Statements Atrial fibrillation with rapid V-rate Repolarization abnormality, prob rate related Baseline wander in lead(s) II,III,aVL,aVF Compared to ECG 09/23/2018 07:20:30 Electronically Signed On 09-26-2018 11:31:47 CDT by Tian Denise [email or web address] ��������������������������������������������� <ELECTRONICALLY SIGNED> ���������������������������������������� By: Tian Denise MD ��������������������������������������������� 09/26/18 1131 0050 0050 Tian Dneise MD /EPI
[2018-09-26 11:33] LABS: HEMATOCRIT 32.4 % (42.0-52.0); HEMOGLOBIN 10.6 gm/dL (14.0-18.0)
[2018-09-26 12:00] LABS: CALCIUM 7.9 mg/dL (8.5-10.1); CREATININE 1.3 mg/dL (0.7-1.3); POTASSIUM 4.6 mmol/L (3.5-5.1)
[2018-09-26 12:05] LABS: ALBUMIN 2.2 g/dL (3.4-5.0); TOTAL BILIRUBIN 4.9 mg/dL (<0.1-1.0)
[2018-09-26 17:11] LABS: BE(vivo) -3.4 mmol/L (-2 to +3); HCO3 23.7 mmol/L (22.0-26.0); PCO2 51.9 mmHg (35.0-45.0); PO2 98.8 mmHg (80.0-100.0); sO2 96.6 % (92.0-98.0)
[2018-09-26 17:12] LABS: pH 7.278 (7.360-7.450)
[2018-09-26 18:41] LABS: HEMATOCRIT 30.7 % (42.0-52.0); HEMOGLOBIN 10.1 gm/dL (14.0-18.0)
[2018-09-27] VITALS (71 sets, daily range): BP systolic 89–144; BP diastolic 47–88
[2018-09-27 00:50] LABS: HEMATOCRIT 28.7 % (42.0-52.0); HEMOGLOBIN 9.4 gm/dL (14.0-18.0)
[2018-09-27 06:02] LABS: HEMATOCRIT 27.9 % (42.0-52.0); HEMOGLOBIN 8.9 gm/dL (14.0-18.0); MCH 29.3 pg (26.0-34.0); MCHC 32.1 g/dL (28.0-37.0); MCV 91.3 fL (80.0-100.0); RBC 3.05 mil/uL (4.50-6.00); RDW 15.4 % (10.5-14.5); WBC 22.1 thou/uL (4.0-11.0)
[2018-09-27 06:08] LABS: CALCIUM 7.8 mg/dL (8.5-10.1); CREATININE 0.8 mg/dL (0.7-1.3); MAGNESIUM 1.7 mg/dL (1.8-2.4); POTASSIUM 4.3 mmol/L (3.5-5.1)
[2018-09-27 07:44] LABS: BE(vivo) 0 mmol/L (-2 to +3); HCO3 25.7 mmol/L (22.0-26.0); PCO2 46.3 mmHg (35.0-45.0); pH 7.362 (7.360-7.450); sO2 98.9 % (92.0-98.0)
[2018-09-28] VITALS (23 sets, daily range): BP systolic 82–110; BP diastolic 47–71
[2018-09-28 05:42] LABS: CALCIUM 8.2 mg/dL (8.5-10.1); CREATININE 0.6 mg/dL (0.7-1.3); MAGNESIUM 2.3 mg/dL (1.8-2.4); POTASSIUM 4.6 mmol/L (3.5-5.1)
[2018-09-28 06:00] LABS: HEMATOCRIT 23.1 % (42.0-52.0); HEMOGLOBIN 7.7 gm/dL (14.0-18.0); MCH 30.1 pg (26.0-34.0); MCHC 33.1 g/dL (28.0-37.0); RBC 2.54 mil/uL (4.50-6.00); WBC 14.9 thou/uL (4.0-11.0)
[2018-09-28 06:01] LABS: ALBUMIN 1.6 g/dL (3.4-5.0); DIRECT BILIRUBIN 1.5 mg/dL (<0.1-0.3); PHOSPHORUS 1.5 mg/dL (2.5-4.9); TOTAL BILIRUBIN 1.7 mg/dL (<0.1-1.0); TOTAL PROTEIN 4.8 g/dL (6.4-8.2)
--- NOTE | 2018-09-28 08:18 | P ---
[facility] [place] [address] PROCEDURE REPORT Name: MALCOM PIERRE Room #: 237-P [facility] IN .R.#: [id number] Admission: 09/05/18 ������������������ Attend Phys: Ricardo Barnes MD Discharge: ������������������ Date of : 48 Report #: [id number] THIS REPORT FOR: //name// CC: Jacob Kerr MD FAM unknown Vaughn Barnes MD DATE OF SERVICE: 09/24/2018 PROCEDURE PERFORMED: Upper endoscopy with bleeding control. HISTORY OF PRESENT ILLNESS: The patient is a 67-year-old male with respiratory failure who underwent a tracheostomy and a PEG tube placement through Interventional Radiology last week. We were reconsulted today as the patient is having increasing abdominal distention and KUB suggesting the possibility of a partial small-bowel obstruction. His PEG tube earlier today was noted to have black coffee-ground type material, which was new. The patient was on Lovenox. His hemoglobin yesterday was 13.6, early this morning dropped to 11.6 and then, a repeat this evening was 10.7. We placed the patient on PPI therapy earlier today. I got a call from ICU nurse this evening, stating more maroon and some bright red blood was coming from the PEG tube, which has been hooked up to low intermittent suction. Because of the change in his bleeding and a drop in his hemoglobin as well as him becoming somewhat hypotensive, the plan is to proceed with an upper endoscopy emergently tonight. DESCRIPTION OF PROCEDURE: The risks and benefits of the procedure were explained to the durable power of state attorney, those risks including but not limited to bleeding, perforation, the risk of sedation. He understood these risks and gave informed consent. The procedure was performed in the ICU at the bedside using conscious sedation. The patient was given fentanyl and Versed. Again, he is on a ventilator at this time through a tracheostomy. Next, using a standard Olympus upper endoscope, the scope was placed in the patient's mouth and advanced under direct vision to the esophagus and into the stomach. The esophagus was normal. There was a small amount of bright red blood noted in the esophagus, but as I entered the stomach, a large clot was noted throughout the entire upper body and fundus, which did limit visualizations a little bit. The PEG tube bumper was noted to be in position in the mid to distal body. The bumper was somewhat buried. I tried to release this somewhat. Interestingly, there was an area that appears to be a suction trauma from mucosal standpoint next to where the bumper was located. This caused a small erythematous raised area as well as a small ulceration. Initially, I thought this was possibly where the patient was bleeding from. I therefore treated with two endoclips. There was no evidence of bleeding after endoclips were placed. I then began looking further. On retroflexion, again visualization was limited, but there [facility] [address] [place] [address] PROCEDURE REPORT Name: MALCOM PIERRE Room #: 237-P [facility] IN M.R.#: [id number] Admission: 09/05/18 ������������������ Attend Phys: Ricardo Barnes MD Discharge: ������������������ Date of : 48 Report #: [id number] was evidence of bright red blood streaming from the upper body opposite to where the clot was. It was difficult to tell if this was a visible vessel, if this is a Dieulafoy lesion, if this is an ulcer with a visible vessel. It was in a difficult location as I could only view this in a retroflexed view. Everytime I tried to change the location, the clot was in the way. There was no question, there was active bleeding at this site. I therefore injected the area with 1 mL of epinephrine. This stopped bleeding. I attempted initially an endoclip, which did not engage mucosa. I tried again with a second endoclip. At this time, it did engage. It appears to be in proper position; however, there is an area to the side and again, this is extremely difficult as this is in a retroflexed view with clot in the way. At this point, there were no signs of any further active bleeding. This may be secondary to the epinephrine over the clip or a combination and I felt it was best to stop at this point. The stomach was decompressed. Liquid blood was suctioned as much as possible and then, the scope was then removed. The patient tolerated the procedure well. IMPRESSION: 1. Large clot within the gastric fundus and body limiting visualization, two areas noted, one adjacent to the PEG tube opening bumper area, likely secondary to suction trauma. This may have caused some bleeding. Two endoclips were placed. Because of this, we will leave the suction off, a low intermittent suction at this time just to dependent drainage. 2. An area of active oozing was noted again in the upper body. This was only on retroflex view. Difficult to access this area, but it was treated with epinephrine and a single endoclip was placed. No further bleeding was noted at that point. RECOMMENDATIONS: 1. Discontinue Lovenox. 2. We will switch to a Protonix drip. 3. Continue to monitor hemoglobin closely with q.6h. hemoglobin checks. 4. We will leave PEG tube to dependent drainage unless the patient is having vomiting or signs of vomiting. We can use it intermittently to suction to decompress the stomach. Thank you for allowing me to participate in his care. ��������������������������������������������� <ELECTRONICALLY SIGNED> ���������������������������������������� By: Jj Contreras MD ��������������������������������������������� 09/28/18 0818 [id number] Jj Contreras MD /nt
[2018-09-29] VITALS (12 sets, daily range): BP systolic 95–132; BP diastolic 48–83
[2018-09-29 03:28] LABS: HEMATOCRIT 22.7 % (42.0-52.0); HEMOGLOBIN 7.3 gm/dL (14.0-18.0); MCH 29.5 pg (26.0-34.0); MCHC 32.3 g/dL (28.0-37.0); MCV 91.4 fL (80.0-100.0); RBC 2.48 mil/uL (4.50-6.00); RDW 15.1 % (10.5-14.5); WBC 14.9 thou/uL (4.0-11.0)
[2018-09-29 03:34] LABS: CREATININE 0.7 mg/dL (0.7-1.3); MAGNESIUM 2.1 mg/dL (1.8-2.4); POTASSIUM 4.6 mmol/L (3.5-5.1)
[2018-09-29 03:46] LABS: CALCIUM 7.9 mg/dL (8.5-10.1)
[2018-09-29 16:41] LABS: HEMATOCRIT 23.5 % (42.0-52.0); HEMOGLOBIN 7.7 gm/dL (14.0-18.0); MCH 29.9 pg (26.0-34.0); MCHC 32.8 g/dL (28.0-37.0); MCV 91.3 fL (80.0-100.0); RBC 2.57 mil/uL (4.50-6.00); RDW 15.4 % (10.5-14.5); WBC 15.5 thou/uL (4.0-11.0)
[2018-09-30] VITALS (12 sets, daily range): BP systolic 81–107; BP diastolic 49–73
[2018-09-30 04:40] LABS: BE(vivo) 4.2 mmol/L (-2 to +3); HCO3 28.7 mmol/L (22.0-26.0); PO2 120.2 mmHg (80.0-100.0); pH 7.443 (7.360-7.450); sO2 98.5 % (92.0-98.0)
[2018-09-30 05:17] LABS: HEMATOCRIT 23.5 % (42.0-52.0); HEMOGLOBIN 7.5 gm/dL (14.0-18.0); MCH 29.2 pg (26.0-34.0); MCHC 31.9 g/dL (28.0-37.0); MCV 91.5 fL (80.0-100.0); PLATELET COUNT 212 thou/uL (150-400); RBC 2.57 mil/uL (4.50-6.00); RDW 15.5 % (10.5-14.5); WBC 15.8 thou/uL (4.0-11.0)
[2018-09-30 05:32] LABS: ALBUMIN 2.1 g/dL (3.4-5.0); CALCIUM 8.2 mg/dL (8.5-10.1); CREATININE 0.6 mg/dL (0.7-1.3); POTASSIUM 4.8 mmol/L (3.5-5.1); TOTAL BILIRUBIN 1.5 mg/dL (<0.1-1.0); TOTAL PROTEIN 4.6 g/dL (6.4-8.2)
[2018-09-30 06:11] LABS: ABSOLUTE NEUTROPHILS 13.4 thou/uL (1.4-8.2); METAMYELOCYTES 3 %
[2018-09-30 06:12] LABS: ANISOCYTOSIS 1+; LARGE PLATELETS FEW; PLATELET ESTIMATE NORMAL; POLYCHROMASIA 1+
[2018-09-30 12:16] LABS: BE(vivo) 4.6 mmol/L (-2 to +3); HCO3 29.2 mmol/L (22.0-26.0); PCO2 43.7 mmHg (35.0-45.0); PO2 70.6 mmHg (80.0-100.0); pH 7.443 (7.360-7.450); sO2 94.7 % (92.0-98.0)
[2018-10-01] VITALS (18 sets, daily range): BP systolic 72–112; BP diastolic 40–70
[2018-10-01 05:42] LABS: ALBUMIN 2.1 g/dL (3.4-5.0); CALCIUM 8.2 mg/dL (8.5-10.1); CREATININE 0.5 mg/dL (0.7-1.3); MAGNESIUM 2.1 mg/dL (1.8-2.4); PHOSPHORUS 3.7 mg/dL (2.5-4.9); POTASSIUM 4.9 mmol/L (3.5-5.1); TOTAL BILIRUBIN 1.2 mg/dL (<0.1-1.0)
[2018-10-01 10:55] LABS: HEMATOCRIT 23.5 % (42.0-52.0); HEMOGLOBIN 7.6 gm/dL (14.0-18.0); MCH 29.9 pg (26.0-34.0); MCHC 32.4 g/dL (28.0-37.0); MCV 92.3 fL (80.0-100.0); RBC 2.54 mil/uL (4.50-6.00); RDW 15.3 % (10.5-14.5); WBC 15.2 thou/uL (4.0-11.0)
[2018-10-02] VITALS: BP 108/58
[2018-10-02 01:42] VITALS: BP 101/60
[2018-10-02 02:00] VITALS: BP 103/62
[2018-10-02 04:00] VITALS: BP 97/64
[2018-10-02 05:18] LABS: HEMATOCRIT 25.6 % (42.0-52.0); HEMOGLOBIN 8.3 gm/dL (14.0-18.0); MCHC 32.5 g/dL (28.0-37.0); MCV 92.1 fL (80.0-100.0); RBC 2.78 mil/uL (4.50-6.00); RDW 15.4 % (10.5-14.5); WBC 17.9 thou/uL (4.0-11.0)
[2018-10-02 05:32] LABS: CALCIUM 8.4 mg/dL (8.5-10.1); CREATININE 0.5 mg/dL (0.7-1.3)
[2018-10-02 06:02] VITALS: BP 107/87
[2018-10-02 08:00] VITALS: BP 94/59
[2018-10-03] VITALS (22 sets, daily range): BP systolic 87–115; BP diastolic 41–89
[2018-10-03 05:46] LABS: HEMATOCRIT 27.3 % (42.0-52.0); HEMOGLOBIN 8.8 gm/dL (14.0-18.0); MCH 29.9 pg (26.0-34.0); MCHC 32.4 g/dL (28.0-37.0); MCV 92.3 fL (80.0-100.0); RBC 2.96 mil/uL (4.50-6.00); WBC 18.2 thou/uL (4.0-11.0)
[2018-10-03 06:01] LABS: CALCIUM 8.5 mg/dL (8.5-10.1); CREATININE 0.5 mg/dL (0.7-1.3)
[2018-10-03 06:02] LABS: POTASSIUM 5.2 mmol/L (3.5-5.1)
[2018-10-03 21:14] LABS: BE(vivo) 5.7 mmol/L (-2 to +3); HCO3 31.6 mmol/L (22.0-26.0); PCO2 52.8 mmHg (35.0-45.0); PO2 136.9 mmHg (80.0-100.0); pH 7.395 (7.360-7.450); sO2 98.7 % (92.0-98.0)
[2018-10-03 21:25] LABS: HEMATOCRIT 28.7 % (42.0-52.0); HEMOGLOBIN 9.2 gm/dL (14.0-18.0); MCH 29.7 pg (26.0-34.0); MCV 92.8 fL (80.0-100.0); RBC 3.09 mil/uL (4.50-6.00); RDW 16.1 % (10.5-14.5); WBC 17.6 thou/uL (4.0-11.0)
[2018-10-03 21:37] LABS: CALCIUM 8.4 mg/dL (8.5-10.1); CREATININE 0.4 mg/dL (0.7-1.3)
[2018-10-04] VITALS (81 sets, daily range): BP systolic 80–154; BP diastolic 30–112
[2018-10-04 04:28] LABS: CALCIUM 8.3 mg/dL (8.5-10.1); CREATININE 0.4 mg/dL (0.7-1.3)
[2018-10-04 04:38] LABS: HEMATOCRIT 28.8 % (42.0-52.0); HEMOGLOBIN 9.2 gm/dL (14.0-18.0); MCH 29.8 pg (26.0-34.0); RBC 3.1 mil/uL (4.50-6.00); RDW 16.1 % (10.5-14.5); WBC 19.8 thou/uL (4.0-11.0)
[2018-10-05] VITALS (93 sets, daily range): BP systolic 74–148; BP diastolic 43–98
[2018-10-05 05:59] LABS: HEMATOCRIT 28.4 % (42.0-52.0); HEMOGLOBIN 9.1 gm/dL (14.0-18.0); MCH 29.8 pg (26.0-34.0); MCHC 32.2 g/dL (28.0-37.0); MCV 92.5 fL (80.0-100.0); RBC 3.07 mil/uL (4.50-6.00); RDW 16.4 % (10.5-14.5); WBC 17.5 thou/uL (4.0-11.0)
[2018-10-05 06:08] LABS: CREATININE 0.5 mg/dL (0.7-1.3); POTASSIUM 4.6 mmol/L (3.5-5.1)
[2018-10-06] VITALS (74 sets, daily range): BP systolic 84–134; BP diastolic 45–82
[2018-10-06 05:04] LABS: BE(vivo) 3.8 mmol/L (-2 to +3); HCO3 28.4 mmol/L (22.0-26.0); PCO2 43.4 mmHg (35.0-45.0); PO2 168.6 mmHg (80.0-100.0); pH 7.434 (7.360-7.450); sO2 99.2 % (92.0-98.0)
[2018-10-06 05:26] LABS: HEMATOCRIT 24.5 % (42.0-52.0); HEMOGLOBIN 7.9 gm/dL (14.0-18.0); MCHC 32.4 g/dL (28.0-37.0); MCV 92.4 fL (80.0-100.0); RBC 2.65 mil/uL (4.50-6.00); RDW 16.3 % (10.5-14.5); WBC 14.5 thou/uL (4.0-11.0)
[2018-10-06 05:45] LABS: CALCIUM 8.2 mg/dL (8.5-10.1); CREATININE 0.4 mg/dL (0.7-1.3); POTASSIUM 4.3 mmol/L (3.5-5.1)
[2018-10-07] VITALS (40 sets, daily range): BP systolic 82–135; BP diastolic 39–71
[2018-10-08] VITALS (65 sets, daily range): BP systolic 85–134; BP diastolic 45–94
[2018-10-08 05:22] LABS: HEMATOCRIT 27.2 % (42.0-52.0); HEMOGLOBIN 8.7 gm/dL (14.0-18.0); MCH 29.2 pg (26.0-34.0); MCHC 31.8 g/dL (28.0-37.0); MCV 91.8 fL (80.0-100.0); RBC 2.97 mil/uL (4.50-6.00); RDW 16.2 % (10.5-14.5); WBC 15.2 thou/uL (4.0-11.0)
[2018-10-08 05:36] LABS: ALBUMIN 1.9 g/dL (3.4-5.0); CALCIUM 8.2 mg/dL (8.5-10.1); CREATININE 0.3 mg/dL (0.7-1.3); MAGNESIUM 1.6 mg/dL (1.8-2.4); PHOSPHORUS 2.4 mg/dL (2.5-4.9); POTASSIUM 4.2 mmol/L (3.5-5.1); TOTAL BILIRUBIN 0.9 mg/dL (<0.1-1.0); TOTAL PROTEIN 5.1 g/dL (6.4-8.2)
[2018-10-09] VITALS (27 sets, daily range): BP systolic 88–136; BP diastolic 51–76
[2018-10-09 09:07] LABS: BE(vivo) 4.9 mmol/L (-2 to +3); HCO3 28.9 mmol/L (22.0-26.0); PO2 112.1 mmHg (80.0-100.0); pH 7.476 (7.360-7.450); sO2 98.4 % (92.0-98.0)
[2018-10-09 10:14] LABS: HEMATOCRIT 28.6 % (42.0-52.0); HEMOGLOBIN 9.4 gm/dL (14.0-18.0); MCH 32.2 pg (26.0-34.0); PLATELET COUNT 290 thou/uL (150-400); RBC 2.93 mil/uL (4.50-6.00); RDW 17.2 % (10.5-14.5); WBC 14.3 thou/uL (4.0-11.0)
[2018-10-09 10:21] LABS: MCV 97.6 fL (80.0-100.0)
[2018-10-09 12:41] LABS: ALBUMIN 2.2 g/dL (3.4-5.0); CALCIUM 8.5 mg/dL (8.5-10.1); CREATININE 0.5 mg/dL (0.7-1.3); POTASSIUM 4.2 mmol/L (3.5-5.1); TOTAL BILIRUBIN 1.3 mg/dL (<0.1-1.0); TOTAL PROTEIN 5.8 g/dL (6.4-8.2)
[2018-10-09 14:14] LABS: ABSOLUTE NEUTROPHILS 12.3 thou/uL (1.4-8.2); ANISOCYTOSIS 1+; METAMYELOCYTES 2 %; POLYCHROMASIA OCCASIONAL
[2018-10-10] VITALS (73 sets, daily range): BP systolic 92–137; BP diastolic 28–85
[2018-10-10 05:26] LABS: BE(vivo) 3.2 mmol/L (-2 to +3); HCO3 27.4 mmol/L (22.0-26.0); PCO2 40.2 mmHg (35.0-45.0); PO2 86.1 mmHg (80.0-100.0); pH 7.451 (7.360-7.450); sO2 96.9 % (92.0-98.0)
[2018-10-10 05:45] LABS: ALBUMIN 1.7 g/dL (3.4-5.0); CALCIUM 7.9 mg/dL (8.5-10.1); CREATININE 0.4 mg/dL (0.7-1.3); TOTAL BILIRUBIN 0.7 mg/dL (<0.1-1.0); TOTAL PROTEIN 4.7 g/dL (6.4-8.2)
[2018-10-10 05:46] LABS: HEMATOCRIT 25.6 % (42.0-52.0); HEMOGLOBIN 8.6 gm/dL (14.0-18.0); MCH 31.5 pg (26.0-34.0); MCHC 33.4 g/dL (28.0-37.0); MCV 94.4 fL (80.0-100.0); PLATELET COUNT 268 thou/uL (150-400); RBC 2.71 mil/uL (4.50-6.00); RDW 16.7 % (10.5-14.5); WBC 11.8 thou/uL (4.0-11.0)
[2018-10-10 06:03] LABS: POTASSIUM 5.9 mmol/L (3.5-5.1)
[2018-10-10 07:00] LABS: ABSOLUTE NEUTROPHILS 9.2 thou/uL (1.4-8.2)
[2018-10-10 07:02] LABS: ANISOCYTOSIS 1+; PLATELET ESTIMATE NORMAL; POLYCHROMASIA 1+
[2018-10-10 07:18] LABS: CALCIUM 8.2 mg/dL (8.5-10.1); CREATININE 0.4 mg/dL (0.7-1.3)
[2018-10-10 08:01] LABS: MAGNESIUM 1.7 mg/dL (1.8-2.4); PHOSPHORUS 2.8 mg/dL (2.5-4.9)
[2018-10-11] VITALS (46 sets, daily range): BP systolic 75–138; BP diastolic 44–96
[2018-10-11 07:14] LABS: HEMATOCRIT 26.3 % (42.0-52.0); HEMOGLOBIN 8.4 gm/dL (14.0-18.0); MCH 29.7 pg (26.0-34.0); MCHC 32.1 g/dL (28.0-37.0); MCV 92.5 fL (80.0-100.0); RBC 2.84 mil/uL (4.50-6.00); RDW 16.5 % (10.5-14.5); WBC 12.8 thou/uL (4.0-11.0)
[2018-10-11 07:18] LABS: ANION GAP < 0 mmol/L (7-16); BUN 30 mg/dL (7-18); CALCIUM 8.5 mg/dL (8.5-10.1); CHLORIDE 100 mmol/L (98-107); CO2 31 mmol/L (21-32); CREATININE 0.5 mg/dL (0.7-1.3); GLUCOSE 99 mg/dL (74-106); MAGNESIUM 1.8 mg/dL (1.8-2.4); POTASSIUM 3.7 mmol/L (3.5-5.1); SODIUM 130 mmol/L (136-145)
[2018-10-12] VITALS (24 sets, daily range): BP systolic 88–134; BP diastolic 42–85
[2018-10-12 13:17] LABS: CALCIUM 8.5 mg/dL (8.5-10.1); CREATININE 0.4 mg/dL (0.7-1.3); POTASSIUM 3.8 mmol/L (3.5-5.1)
[2018-10-13] VITALS (25 sets, daily range): BP systolic 86–124; BP diastolic 52–91
[2018-10-14] VITALS (24 sets, daily range): BP systolic 89–142; BP diastolic 51–92
[2018-10-14 08:34] LABS: HEMATOCRIT 27.9 % (42.0-52.0); HEMOGLOBIN 9.1 gm/dL (14.0-18.0); MCH 30.2 pg (26.0-34.0); MCHC 32.6 g/dL (28.0-37.0); MCV 92.8 fL (80.0-100.0); PLATELET COUNT 240 thou/uL (150-400); RBC 3.01 mil/uL (4.50-6.00); RDW 16.4 % (10.5-14.5); WBC 9.2 thou/uL (4.0-11.0)
[2018-10-14 08:49] LABS: ALBUMIN 2.1 g/dL (3.4-5.0); CALCIUM 8.5 mg/dL (8.5-10.1); CREATININE 0.4 mg/dL (0.7-1.3); POTASSIUM 3.6 mmol/L (3.5-5.1); TOTAL BILIRUBIN 0.5 mg/dL (<0.1-1.0); TOTAL PROTEIN 4.8 g/dL (6.4-8.2)
[2018-10-14 09:18] LABS: METAMYELOCYTES 2 %; MYELOCYTES 1 %
[2018-10-14 09:19] LABS: ANISOCYTOSIS 1+
[2018-10-14 09:20] LABS: POLYCHROMASIA OCCASIONAL
[2018-10-15] VITALS (58 sets, daily range): BP systolic 91–137; BP diastolic 54–82
[2018-10-16] VITALS (40 sets, daily range): BP systolic 77–140; BP diastolic 45–80
--- NOTE | 2018-10-16 10:39 | HC ---
[facility] [address] [address] CONSULTATION Name: MALCOM PIERRE Room #: 237-P [facility] IN M.R.#: [id number] Admission: 09/05/18 ������������������ Attend Phys: Iliana Galvan Discharge: ������������������ Date of : 48 Report #: [id number] THIS REPORT FOR: //name// CC: FAM unknown Jarrett Morris DATE OF SERVICE: 09/28/2018 CHIEF COMPLAINT: Surgical incision to the abdominal wall. HISTORY OF PRESENT ILLNESS: This is a 68-year-old male patient who is status post diagnostic laparoscopy converted to an open modified Thiago patch with abdominal washout and STARR drain placement due to a gastric perforation. He is in the ICU. He has a Prevena wound VAC in place. There has been some drainage and some leakage of the VAC, and I have been asked to assess him for ongoing wound care. The patient is not able to provide any information about himself as he is currently intubated and somewhat obtunded or sedated in the ICU. He was originally sent here from [facility] by a [facility]. PAST MEDICAL HISTORY: The patient's review of his past records demonstrate a past medical history of obesity and abdominal distention and possible G-tube erosion. Past medical history is incomplete: MEDICATIONS: Fully reviewed in his MAR. PAST SURGICAL HISTORY: As above. ALLERGIES: PENICILLIN. SOCIAL HISTORY: Unknown. FAMILY HISTORY: Unknown. REVIEW OF SYSTEMS: Not obtainable due to the patient's obtundation and sedation while on a ventilator. PHYSICAL EXAMINATION: VITAL SIGNS: Include temperature 36.9, pulse 92, respiratory rate of 31, blood pressure 117/54. GENERAL: This is a chronically ill-appearing male patient who appears to be sedated. HEENT: Head normocephalic. Nose and throat and neck demonstrated the patient is intubated. LUNGS: Coarse. HEART: Regular rhythm. ABDOMEN: Obese, distended. The Prevena VAC does not appear to have complete [facility] [address] [address] CONSULTATION Name: MALCOM PIERRE Room #: [address] [place] [address] [place] [facility]#: [id number] Admission: 09/05/18 ������������������ Attend Phys: Iliana Galvan Discharge: ������������������ Date of : 48 Report #: [id number] coverage of the incision line, and there is some oozing at the inferior margin and loss of suction. We removed the VAC and have applied a dry dressing over the incision line. There is significant distention of the abdomen, no obvious bleeding at this time. Back and sacral gluteal region are relatively clear with only some mild blanchable discoloration. EXTREMITIES: Lower extremities show 3+ edema. LABORATORY DATA: Includes sodium 138, potassium 4.6, chloride 105, CO2 of 27, BUN 28, creatinine 0.6, glucose is 238. Albumin is markedly low at 1.6. White blood cell count 14.9, with hemoglobin 7.7. CLINICAL IMPRESSION: 1. Surgical wound to the abdominal wall following exploratory laparotomy with a modified Thiago patch due to a gastric perforation due to a G-tube erosion. 2. Morbid obesity. 3. Respiratory failure. 4. Diabetes with hyperglycemia. 5. Severe protein-calorie malnutrition, albumin 1.6. RECOMMENDATIONS: At this point in time, we will discontinue Prevena VAC and start a silver alginate dressing and ABD twice daily. He will need to be turned and repositioned on low air loss mattress as well as PRAFO boots all for pressure prophylaxis purposes. He will need aggressive nutritional support to maintain wound healing and glycemic control I have discussed this case with Dr. Brown. We will follow him closely. ��������������������������������������������� <ELECTRONICALLY SIGNED> ���������������������������������������� By: Bill Cabrales MD ��������������������������������������������� 10/16/18 1039 [id number] [id number] Bill Cabrales MD /nt
[2018-10-16 21:11] LABS: CALCIUM 8.6 mg/dL (8.5-10.1); CREATININE 0.4 mg/dL (0.7-1.3); POTASSIUM 3.7 mmol/L (3.5-5.1)
[2018-10-16 21:15] LABS: ALBUMIN 2.1 g/dL (3.4-5.0); MAGNESIUM 1.8 mg/dL (1.8-2.4); PHOSPHORUS 3.1 mg/dL (2.5-4.9)
[2018-10-17] VITALS (41 sets, daily range): BP systolic 87–132; BP diastolic 49–80
[2018-10-17 05:46] LABS: ALBUMIN 2.3 g/dL (3.4-5.0); CALCIUM 8.5 mg/dL (8.5-10.1); CREATININE 0.4 mg/dL (0.7-1.3); POTASSIUM 3.3 mmol/L (3.5-5.1); TOTAL BILIRUBIN 0.7 mg/dL (<0.1-1.0); TOTAL PROTEIN 5.6 g/dL (6.4-8.2)
[2018-10-18] VITALS (26 sets, daily range): BP systolic 88–133; BP diastolic 53–81
[2018-10-18 05:54] LABS: ALBUMIN 2.3 g/dL (3.4-5.0); CALCIUM 8.8 mg/dL (8.5-10.1); CREATININE 0.5 mg/dL (0.7-1.3); PHOSPHORUS 3.5 mg/dL (2.5-4.9); POTASSIUM 3.8 mmol/L (3.5-5.1)
[2018-10-18] MEDS ORDERED: ACETAMINOPHEN650 MG RECTAL (12:06)
[2018-10-18] MEDS ORDERED: ENOXAPARIN40 MG/0.1 SUBQ (12:06)
[2018-10-18] MEDS ORDERED: PULMICORT0.5 MG/22 INH (12:06)
[2018-10-18] MEDS ORDERED: BISACODYL SUPP10 MG RECTAL (12:06)
[2018-10-18] MEDS ORDERED: PERIDEX 0.12%473 M1 MUCOUS MEM (12:06)
[2018-10-18] MEDS ORDERED: PROTONIX40 M1 PER TUBE (12:06)
[2018-10-18] MEDS ORDERED: NOVOLOG100 UNIT/1 SUBQ (12:06)
[2018-10-18] MEDS ORDERED: MIRALAX17 GM PER TUBE (12:06)
[2018-10-18] MEDS ORDERED: CARDIZEM60 MG PER TUBE (12:06)
[2018-10-18] MEDS ORDERED: ADULT SUPPOSIT1 EACH RECTAL (12:06)
[2018-10-18] MEDS ORDERED: IPRAT-ALBUT 0.5-3 ML INH ×2 (12:06)
[2018-10-18] MEDS ORDERED: LASIX 40 MG TAB40 M2 PO (12:07)
[2018-10-18] MEDS ORDERED: REGLAN 10 MG TA10 MG PO (12:07)
[2018-10-18] MEDS ORDERED: LEVAQUIN 750 M750 MG PO (12:20)
[2018-10-18] MEDS ORDERED: DIFLUCAN200 MG PER TUBE (12:20)
[2018-10-18] MEDS ORDERED: PREDNISONE 10 M10 MG PO (12:20)
[2018-10-18] MEDS ORDERED: MERREM1 GM IV (12:20)
[2018-10-18] MEDS ORDERED: PROBIOTIC1 EAC1 PO (12:20)
--- NOTE | 2018-10-20 12:08 | O ---
[facility] [place] [address] [place] [address] OPERATIVE REPORT Name: MALCOM PIERRE Yovanny Room #: 237-P [facility] IN M.R.#: [id number] Admission: 09/05/18 ������������������ Attend Phys: Iliana Galvan Discharge: 10/18/18 ������������������ Date of : 48 Report #: [id number] THIS REPORT FOR: //name// CC: FAM kristen Ricardo Barnes DATE OF SERVICE: 09/21/2018 PREOPERATIVE DIAGNOSIS: Respiratory failure. POSTOPERATIVE DIAGNOSIS: Respiratory failure. PROCEDURE: Tracheotomy. DESCRIPTION OF PROCEDURE: The patient was brought to the operating room and placed in his hospital bed supine. General anesthesia was obtained. The patient is already intubated. The patient's neck was prepped with Betadine. A 1% lidocaine with 1:100,000 epinephrine was infiltrated in the low midline neck, and the patient is prepped sterilely. A #15 blade was used to incise the low midline neck approximately 2 fingerbreadths above the sternal notch. Subcutaneous tissues were dissected sharply through the subcutaneous adipose tissue. Bovie cautery was used for hemostasis. Bovie cautery was then utilized to divide the platysma. Subplatysmal flap was developed superiorly to the thyroid cartilage and inferiorly to the sternal notch. Strap muscles are divided in the midline. Utilizing Bovie cautery, the thyroid isthmus identified. The cricoid is hooked with the trach hook and retracted superiorly. The third tracheal ring is identified after elevating the fascia off the anterior tracheal wall. Bovie cautery was used above and below the third tracheal cartilage. The third tracheal cartilage then is grasped in the anterior third. A Salas scissor was used to resect the middle third of the tracheal cartilage. The trachea is entered into, the mucus present is evacuated. The endotracheal tube was withdrawn. Trousseau dilator was used to dilate the tracheotomy. Shiley 7 extended proximal length tube was then placed easily through the tracheostomy and CO2 is monitored and retrieved on ventilation. The balloon was inflated. The tracheotomy tube is secured in place with 2 silk sutures superiorly and a trach tie about the neck. The patient was transferred back to Intensive Care Unit where he will continue to recover. He had no immediate complication. Blood loss was about 5 mL. ��������������������������������������������� <ELECTRONICALLY SIGNED> ���������������������������������������� By: Dawson Epstein MD ��������������������������������������������� 10/20/18 1208 0924 [id number] Dawson Epstein MD /nt
--- NOTE | 2018-10-20 12:08 | HC ---
[facility] [place] [address] [place] [address] CONSULTATION Name: MALCOM PIERRE Room #: 237-P [facility] IN M.R.#: [id number] Admission: 09/05/18 ������������������ Attend Phys: Iliana Galvan Discharge: 10/18/18 ������������������ Date of : 48 Report #: [id number] THIS REPORT FOR: //name// CC: FAM unknown Ricardo Barnes DATE OF SERVICE: 09/20/2018 REASON FOR CONSULTATION: Respiratory failure with need for tracheotomy. HISTORY OF PRESENT ILLNESS: The patient is a 67-year-old male who has had problems with respiratory failure. He has developed pneumonia, has been ventilated for greater than 2 weeks, and I have been asked to provide tracheotomy services. PAST MEDICAL HISTORY: Very well detailed in the chart. MEDICATIONS: See his MAR for medications. ALLERGIES: PENICILLIN. REVIEW OF SYSTEMS: For the most part, unobtainable as he is intubated, although he is not sedate. PHYSICAL EXAMINATION: GENERAL: He is a well-developed male who is resting semi-supine in bed, alert and able to communicate somewhat with nodding. HEENT: Normocephalic. Pupils equal, round, react to light. He is morbidly obese, has a significant girth to his neck. Oral cavity, he is currently intubated. NECK: Trachea is midline, although difficult to feel secondary to the large amount of adipose tissue. IMPRESSION: Respiratory failure, prolonged ventilation. PLAN: Proceed with tracheotomy. ��������������������������������������������� <ELECTRONICALLY SIGNED> ���������������������������������������� By: Dawson Epstein MD ��������������������������������������������� 10/20/18 1208 0921 0937 Dawson Epstein MD /nt
== END 2018-10-18 15:50 | DRG 3 ==
LOC: ICU 23:53
PROVIDERS: Hospitalist; Internal Medicine; Internal Medicine Gastroenterology; Internal Medicine Pulmonary Disease; Nurse Practitioner; Nurse Practitioner Acute Care; Nurse Practitioner Adult Health; Nurse Practitioner Family; Nurse Practitioner Gerontology; Pediatrics; Specialist; Surgery; ADMIT Family Medicine
PROC: 0B110F4 Bypass Trachea to Cutaneous with Tracheostomy Device, Open Approach (ICD-10-PCS; principal; 2018-09-05)
PROC: 5A1955Z Respiratory Ventilation, Greater than 96 Consecutive Hours (ICD-10-PCS; principal; 2018-09-05)
PROC: 0DU907Z Supplement Duodenum with Autologous Tissue Substitute, Open Approach (ICD-10-PCS; principal; 2018-09-05)
PROC: 0D9670Z Drainage of Stomach with Drainage Device, Via Natural or Artificial Opening (ICD-10-PCS; 2018-09-07)
PROC: 0DJ08ZZ Inspection of Upper Intestinal Tract, Via Natural or Artificial Opening Endoscopic (ICD-10-PCS; 2018-09-19)
PROC: 0DH63UZ Insertion of Feeding Device into Stomach, Percutaneous Approach (ICD-10-PCS; 2018-09-20)
PROC: 0W3P8ZZ Control Bleeding in Gastrointestinal Tract, Via Natural or Artificial Opening Endoscopic (ICD-10-PCS; 2018-09-20)
PROC: 30233N1 Transfusion of Nonautologous Red Blood Cells into Peripheral Vein, Percutaneous Approach (ICD-10-PCS; 2018-09-25)
PROC: 0DNW0ZZ Release Peritoneum, Open Approach (ICD-10-PCS; 2018-09-25)
PROC: 0YQ50ZZ Repair Right Inguinal Region, Open Approach (ICD-10-PCS; 2018-09-25)
PROC: 0DJ04ZZ Inspection of Upper Intestinal Tract, Percutaneous Endoscopic Approach (ICD-10-PCS; 2018-09-25)
PROC: 0BJ08ZZ Inspection of Tracheobronchial Tree, Via Natural or Artificial Opening Endoscopic (ICD-10-PCS; 2018-09-26)
PROC: 0J980ZZ Drainage of Abdomen Subcutaneous Tissue and Fascia, Open Approach (ICD-10-PCS; 2018-10-04)
PROC: 0W9F0ZZ Drainage of Abdominal Wall, Open Approach (ICD-10-PCS; 2018-10-08)
PROC: 0JX80ZB Transfer Abdomen Subcutaneous Tissue and Fascia with Skin and Subcutaneous Tissue, Open Approach (ICD-10-PCS; 2018-10-11)
PROC: 05HM33Z Insertion of Infusion Device into Right Internal Jugular Vein, Percutaneous Approach (ICD-10-PCS; 2018-10-11)
PROC: 05HM33Z Insertion of Infusion Device into Right Internal Jugular Vein, Percutaneous Approach (ICD-10-PCS; 2018-10-15)
PROC: 0JX80ZB Transfer Abdomen Subcutaneous Tissue and Fascia with Skin and Subcutaneous Tissue, Open Approach (ICD-10-PCS; 2018-10-15)
DX: A41.9 Sepsis, unspecified organism (principal); J96.01 Acute respiratory failure with hypoxia; J96.02 Acute respiratory failure with hypercapnia; E43 Unspecified severe protein-calorie malnutrition; R65.21 Severe sepsis with septic shock; J10.08 Influenza due to other identified influenza virus with other specified pneumonia; J14 Pneumonia due to Hemophilus influenzae; J69.0 Pneumonitis due to inhalation of food and vomit; K25.4 Chronic or unspecified gastric ulcer with hemorrhage; K56.7 Ileus, unspecified; K56.609 Unspecified intestinal obstruction, unspecified as to partial versus complete obstruction; D62 Acute posthemorrhagic anemia; I48.92 Unspecified atrial flutter; K94.23 Gastrostomy malfunction; T81.31XA Disruption of external operation (surgical) wound, not elsewhere classified, initial encounter; G93.40 Encephalopathy, unspecified; I50.30 Unspecified diastolic (congestive) heart failure; Z99.11 Dependence on respirator [ventilator] status; E66.01 Morbid (severe) obesity due to excess calories; I95.9 Hypotension, unspecified; R14.0 Abdominal distension (gaseous); G47.33 Obstructive sleep apnea (adult) (pediatric); E11.65 Type 2 diabetes mellitus with hyperglycemia; E16.2 Hypoglycemia, unspecified; R13.10 Dysphagia, unspecified; I48.0 Paroxysmal atrial fibrillation; K40.90 Unilateral inguinal hernia, without obstruction or gangrene, not specified as recurrent; R74.0 Nonspecific elevation of levels of transaminase and lactic acid dehydrogenase [LDH]; Z79.899 Other long term (current) drug therapy; Z88.0 Allergy status to penicillin; Z68.39 Body mass index [BMI] 39.0-39.9, adult; K94.21 Gastrostomy hemorrhage
CPT/HCPCS: 10078; 50011; 50101; 50249; 50331; 50386; 50398; 50550; 50555; 50643; 50820; 50953; 51114; 51412; 52265; 53040; 53307; 53310; 56462; 56524; 56525; 56526; 56527; 56530; 57092; 57103; 62110; 62900; 65020; 65040; 65090; 83006